=== PATIENT | female | born 1970 | race Caucasian/White ===

== ENCOUNTER → 2023-07-27 18:47 | Outpatient (REF) | payer BC, SELFPAY | LOC: MRI 18:47 | PROVIDERS: ATTENDING PHYSICIAN Student in an Organized Health Care Education/Training Program; FAMILY PHYSICIAN Family Medicine | DX: G35 Multiple sclerosis (principal) | CPT/HCPCS: 70553; A9575 ==

== ENCOUNTER → 2023-07-28 16:43 | Outpatient (REF) | payer BC, SELFPAY | LOC: MRI 16:43 | PROVIDERS: ATTENDING PHYSICIAN Student in an Organized Health Care Education/Training Program | DX: G35 Multiple sclerosis (principal) | CPT/HCPCS: 72156; 72157; A9575 ==

== ENCOUNTER → 2024-08-17 06:44 | Outpatient (REF) | payer BC, SELFPAY | LOC: MRI 3T 06:44 | PROVIDERS: FAMILY PHYSICIAN Family Medicine | DX: G35 Multiple sclerosis (principal) | CPT/HCPCS: 70551 ==